=== PATIENT | female | born 1985 | race Caucasian/White ===

== ENCOUNTER 2018-08-24 05:42 | Emergency (ER) | payer MEDICAID ==
[~2018-08-24] VITALS: Ht 172.7 cm; Wt 63.0 kg
[2018-08-24 05:45] VITALS: BP 98/58; Ht 172.7 cm; Wt 63.0 kg
== END 2018-08-24 08:18 | disposition home or self-care (01) ==
LOC: ED 05:42
DX: S52.512A Displaced fracture of left radial styloid process, initial encounter for closed fracture (principal); S93.401A Sprain of unspecified ligament of right ankle, initial encounter; F17.210 Nicotine dependence, cigarettes, uncomplicated; F43.10 Post-traumatic stress disorder, unspecified; F20.0 Paranoid schizophrenia; Z98.890 Other specified postprocedural states; W17.89XA Other fall from one level to another, initial encounter; Y93.89 Activity, other specified; Y92.89 Other specified places as the place of occurrence of the external cause; Y99.8 Other external cause status
CPT/HCPCS: 99406; A4570; J3010

== ENCOUNTER 2019-08-11 16:09 | Emergency (ER) | payer MEDICAID ==
[~2019-08-11] VITALS: Ht 170.2 cm; Wt 59.9 kg
[2019-08-11 16:21] VITALS: Ht 170.2 cm; Wt 59.9 kg
[2019-08-11 17:46] VITALS: BP 114/69
== END 2019-08-11 17:46 | disposition home or self-care (01) ==
LOC: ED 16:09
DX: R07.89 Other chest pain (principal); M54.6 Pain in thoracic spine; M25.512 Pain in left shoulder; R11.0 Nausea; R42 Dizziness and giddiness; R00.2 Palpitations; M79.7 Fibromyalgia
CPT/HCPCS: Q0092

== ENCOUNTER 2020-02-23 15:52 | Emergency (ER) | payer MEDICAID ==
[~2020-02-23] VITALS: Ht 172.7 cm; Wt 62.6 kg
[2020-02-23 15:58] VITALS: BP 105/68; Ht 172.7 cm; Wt 62.6 kg
== END 2020-02-23 16:40 | disposition home or self-care (01) ==
LOC: ED 15:52
DX: R07.89 Other chest pain (principal); Z76.0 Encounter for issue of repeat prescription; Z98.890 Other specified postprocedural states

== ENCOUNTER 2020-02-27 16:11 | Emergency (ER) | payer MEDICAID ==
[~2020-02-27] VITALS: Ht 172.7 cm; Wt 59.9 kg
[2020-02-27 16:53] VITALS: BP 121/90; Ht 172.7 cm; Wt 59.9 kg
== END 2020-02-27 19:09 | disposition home or self-care (01) ==
LOC: ED 16:11
DX: N76.0 Acute vaginitis (principal)

== ENCOUNTER 2020-03-09 17:04 | Emergency (ER) | payer MEDICAID ==
[~2020-03-09] VITALS: Ht 172.7 cm; Wt 61.2 kg
[2020-03-09 19:06] VITALS: BP 100/65; Ht 172.7 cm; Wt 61.2 kg
== END 2020-03-09 19:53 | disposition home or self-care (01) ==
LOC: ED 17:04
DX: S60.511A Abrasion of right hand, initial encounter (principal); F17.210 Nicotine dependence, cigarettes, uncomplicated; Z98.890 Other specified postprocedural states; W45.8XXA Other foreign body or object entering through skin, initial encounter; Y93.89 Activity, other specified; Y92.89 Other specified places as the place of occurrence of the external cause; Y99.8 Other external cause status